=== PATIENT | male | born 1945 | race Caucasian/White ===

== ENCOUNTER 2017-01-31 06:10 | Day surgery (SDC) | payer MEDICARE, OTHER ==
--- NOTE | ~2017-01-31 | OP ---
Record Of Operation [facility] [address] [place]. [address] NAME: ABI TELLEZ : 41 STATUS : [facility]#: [id number] AGE: 71 ADM/REG DATE : 01/31/17 MR#: [id number] REPORT SERV DATE: 02/01/17 DICTATED BY: ISAIAH BASURTO DATE: 02/01/17 REPORT STATUS : Draft TRANSCRIBED BY: MODErma DATE: 02/01/17 DATE OF PROCEDURE: 01/31/2017 PREOPERATIVE DIAGNOSIS: End-stage renal disease. POSTOPERATIVE DIAGNOSIS: End-stage renal disease. PROCEDURE: Left brachial artery axillary vein AV graft. SURGEON: Isaiah Basurto M.D. ACTION FINISHER: Johnny Ramírez. ANESTHESIA: Block and local. INDICATIONS: The patient is a 71-year-old gentleman with renal failure who had a left radiocephalic fistula placed. The fistula never matured, so now he returns to the operating room for a new access. DESCRIPTION OF PROCEDURE: After informed consent was obtained, the patient was taken to the operating room and placed in the supine position on the operating table. Monitored anesthesia was administered. A block was previously administered. I began with an ultrasound examination of the left upper extremity and found that the basilic vein was of reasonable size. This was in the arm. The cephalic vein looked reasonable in the distal arm, but was essentially non-existent proximally. Given this gentleman's prolonged use of a dialysis catheter, it was decided to perform an AV graft. The patient's left upper extremity was prepped and draped in the usual sterile fashion. A longitudinal skin incisions were made along the proximal and distal left arm. Cautery was used to deepen the incisions. I sharply dissected out the left brachial artery and the left axillary vein. The brachial artery measured about 5 mm in diameter and was extremely diseased. The axillary vein was about 4 mm in diameter. I selected and tunneled a 4 to 7 mm tapered PTFE graft in a subcutaneous position. I systemically heparinized. I controlled the axillary vein. I created a longitudinal venotomy. I spatulated the 7 mm end of the graft. I sewed the end of the graft onto the side of the vein. I flushed it of air and debris before tying down the sutures. I achieved hemostasis. I then controlled the brachial artery. I created a longitudinal arteriotomy. I spatulated the 4 mm end of the graft and sewed the end of the graft on the side of the brachial artery. I flushed of air and debris before tying down the sutures. I released flow to the wrist. I achieved hemostasis. I washed out the wounds and closed them in layers. There was a great thrill within the graft upon completion and there was no evidence of hand ischemia. The patient tolerated the procedure well without any intraprocedural complications noted. BERNARDO/ALLA Record Of Operation [address] [place]. [address] NAME: ABI TELLEZ : 41 STATUS : [facility] PAT#: [id number] AGE: 71 ADM/REG DATE : 01/31/17 MR#: [id number] REPORT SERV DATE: 02/01/17 DICTATED BY: ISAIAH BASURTO DATE: 02/01/17 REPORT STATUS : Draft TRANSCRIBED BY: ALLA DATE: 02/01/17 Isaiah Basurto M.D. / [id number] CC: Joan Velazquez M.D.
[~2017-01-31 06:10] MED LIST: ALTA2.5 PO; AMARYL2 PO; AMARYL4 PO; ASAB PO; BACDS PO; BUM1 PO; C1 PO; C2 OR; C2 PO; C25; C5 PO; CLARIT10 PO; CO Q-10200 MG PO; COMBIVENT RESPIM4 GM INH; COQ-1010 MG OR; COQ-10200 MG PO; CORDARONE PO; COREG12 PO; COUMADIN3 MG PO; COUMADIN6 MG; DEMA20 PO; FESO4 PO; FORTAMET500 MG PO; HALF81 PO; K500 PO; L20 PO; LEVAQUIN750 MG PO; LEVEMFLXPN SC; LEVEMIR; LEVOTHYROXIN25 MCG PO; LEVOTHYROXIN75 MCG PO; LIPITOR40 PO; LIPITOR80 MG PO; MEDROL DOSE PACK; MELA3 PO; NITROSTAT0.4 MG SL; P20 PO; PACERONE100 MG PO; PLAVIX PO; PROMETHAZIN1 PO; REPATHA 140 MG IJ; REPATHA 140 MG IN; REPATHA IJ; REPATHA SC; SPIRO25 PO; SYMBICORT 160/41 INH INH; SYN075 PO; TYLENOL SIN1 PO; UNKNOWN ANTIBIOTIC IV; VITAMIN D1000 UNI1 PO; VITAMIN D31000 UNIT PO; XODOL1 TA2 PO; Z100 PO; ZESTRIL30 MG PO; [UNRECOGNIZED DRUG - OTHER] PO
[2017-01-31 07:11] LABS: HEMATOCRIT 34.6 % (40.0-51.0); HEMOGLOBIN 10.6 g/dL (13.6-17.8)
[2017-01-31 07:18] LABS: INTERNATIONAL NORMAL RATI 1.3 UNITS (-); PROTIME (NOT ORD) 15.7 SEC (12.0-14.5)
[2017-01-31 07:27] LABS: CHLORIDE, SERUM 104 MMOL/L (96-112); CO2 (CARBON DIOXIDE) 26 MMOL/L (24-34); POTASSIUM, SERUM 4.6 MMOL/L (3.5-5.3); SODIUM, SERUM 138 MMOL/L (135-148)
[2017-01-31 07:28] LABS: BUN (BLOOD UREA NITROGEN) 45 MG/DL (6-23); CALCIUM, SERUM 8.8 MG/DL (8.5-10.4); GFR AFRICAN AMERICAN 13 ML/MIN (>=60); GFR NON AFRICAN AMERICAN 11 ML/MIN (>=60); GLUCOSE, SERUM 106 MG/DL (60-99)
[2017-05-08] MEDS ORDERED: COREG12 PO (16:04)
[2017-05-08] MEDS ORDERED: HALF81 PO (16:04)
[2017-05-08] MEDS ORDERED: AMARYL1 MG PO (16:05)
[2017-05-08] MEDS ORDERED: NEUR400 PO ×2 (16:05→16:09)
[2017-05-08] MEDS ORDERED: VITAMIN D31000 UNIT PO (16:05)
[2017-05-08] MEDS ORDERED: VISINE TEARS15 ML OPH (16:06)
[2017-05-08] MEDS ORDERED: NORCO1 TAB PO (16:08)
[2017-05-08] MEDS ORDERED: SYN075 PO (16:12)
[2017-05-08] MEDS ORDERED: RENVELA800 MG PO (16:13)
[2017-05-08] MEDS ORDERED: SPIRIVA RESPIMAT INH (16:15)
[2017-05-08] MEDS ORDERED: REPATHA INJECTION SC (16:18)
[2017-05-08] MEDS ORDERED: C2 PO (16:20)
== END 2017-01-31 13:08 | disposition home or self-care (01) ==
LOC: SDC 06:10
PROVIDERS: Surgery
DX: I12.0 Hypertensive chronic kidney disease with stage 5 chronic kidney disease or end stage renal disease (principal); E11.22 Type 2 diabetes mellitus with diabetic chronic kidney disease; N18.6 End stage renal disease; J44.9 Chronic obstructive pulmonary disease, unspecified; I25.10 Atherosclerotic heart disease of native coronary artery without angina pectoris; Z88.8 Allergy status to other drugs, medicaments and biological substances; Z79.82 Long term (current) use of aspirin; Z79.01 Long term (current) use of anticoagulants; Z79.899 Other long term (current) drug therapy
CPT/HCPCS: 36830; 80048; 82962; 85014; 85018; 85610; 93005; C1768; J0690; J2250; J2795; J3010

== ENCOUNTER 2017-02-20 16:19 | Observation (INO) | payer MEDICARE, OTHER ==
[2017-02-20] MEDS ORDERED: NORCO1 TAB PO (18:10)
[2017-02-20] MEDS ORDERED: COREG12 PO (18:10)
[2017-02-20] MEDS ORDERED: REPATHA PO (18:10)
[2017-02-20] MEDS ORDERED: RENVELA800 MG PO (18:11)
[2017-02-20] MEDS ORDERED: LEVOTHYROXIN75 MCG PO (18:12)
[2017-02-20] MEDS ORDERED: AMARYL1 MG PO (18:12)
[2017-02-20] MEDS ORDERED: C1 PO (18:13)
[2017-02-20] MEDS ORDERED: VITAMIN D1000 UNI1 PO (18:14)
[2017-02-20] MEDS ORDERED: SYMBICORT 160/41 INH INH (18:14)
[2017-02-20] MEDS ORDERED: VISINE TEARS15 ML OPH (18:15)
[2017-02-20 18:16] LABS: BASOPHILS 0.4 %; BASOPHILS ABSOLUTE 0.04 10/3/uL (0.0-0.16); EOSINOPHILS ABSOLUTE 0.36 10/3/uL (0.0-0.53); ER CBC TAT 0 Hrs 18 Mins; HEMOGLOBIN 10.6 g/dL (13.6-17.8); IMMATURE GRANULOCYTES 0.8 %; IMMATURE GRANULOCYTES ABSOLUTE 0.07 10/3/uL (0.0-0.11); LYMPHOCYTES 20.8 %; LYMPHOCYTES ABSOLUTE 1.85 10/3/uL (0.67-4.30); MANUAL DIFF NO %; MEAN CORPUS HGB CONC 28.6 g/dL (32.0-36.0); MEAN CORPUSCULAR HEMOGLOB 29.9 pg (26.0-34.0); MEAN CORPUSCULAR VOLUME 104.5 fL (80-100); MEAN PLATELET VOLUME 9.7 fL (9.2-13.0); MONOCYTES 14.1 %; MONOCYTES ABSOLUTE 1.26 10/3/uL (0.21-1.20); NEUTROPHILS 59.9 %; NEUTROPHILS ABSOLUTE 5.33 10/3/uL (2.02-8.40); PLATELET COUNT 204 10/3/uL (150-400); RBC DISTRIBUTION WIDTH 19.3 % (12.0-16.0); RED CELL COUNT 3.54 10/6/uL (4.7-6.1); WHITE BLOOD CELLS 8.9 10/3/uL (4.5-10.5)
[2017-02-20 18:24] LABS: CHEST PAIN PROFILE TAT 0 Hrs 26 Mins; CHLORIDE, SERUM 108 MMOL/L (96-112); CO2 (CARBON DIOXIDE) 29 MMOL/L (24-34); SODIUM, SERUM 137 MMOL/L (135-148); TROPONIN I <0.02 NG/ML (<0.05)
[2017-02-20 18:26] LABS: INTERNATIONAL NORMAL RATI 1.5 UNITS (-)
[2017-02-20 18:27] LABS: BUN (BLOOD UREA NITROGEN) 36 MG/DL (6-23); CREATININE 6.06 MG/DL (0.70-1.30); GFR AFRICAN AMERICAN 10 ML/MIN (>=60); GFR NON AFRICAN AMERICAN 8 ML/MIN (>=60); GLUCOSE, SERUM 68 MG/DL (60-99); PARTIAL THROMBO TIME 32.4 SEC (22.5-37.2); POTASSIUM, SERUM 7.2 MMOL/L (3.5-5.3)
[2017-02-20 18:29] LABS: PROTIME (NOT ORD) 18.1 SEC (12.0-14.5)
[2017-05-08] MEDS ORDERED: HALF81 PO (16:04)
[2017-05-08] MEDS ORDERED: COREG12 PO (16:04)
[2017-05-08] MEDS ORDERED: NEUR400 PO ×2 (16:05→16:09)
[2017-05-08] MEDS ORDERED: AMARYL1 MG PO (16:05)
[2017-05-08] MEDS ORDERED: VITAMIN D31000 UNIT PO (16:05)
[2017-05-08] MEDS ORDERED: VISINE TEARS15 ML OPH (16:06)
[2017-05-08] MEDS ORDERED: NORCO1 TAB PO (16:08)
[2017-05-08] MEDS ORDERED: SYN075 PO (16:12)
[2017-05-08] MEDS ORDERED: RENVELA800 MG PO (16:13)
[2017-05-08] MEDS ORDERED: SPIRIVA RESPIMAT INH (16:15)
[2017-05-08] MEDS ORDERED: REPATHA INJECTION SC (16:18)
[2017-05-08] MEDS ORDERED: C2 PO (16:20)
== END 2017-02-20 21:39 | disposition home or self-care (01) ==
LOC: ER 16:19 → CDU1 18:09 → CDU2 20:49
PROVIDERS: Hospitalist
DX: M79.89 Other specified soft tissue disorders (principal); E87.6 Hypokalemia; N18.6 End stage renal disease; Z79.01 Long term (current) use of anticoagulants; Z79.899 Other long term (current) drug therapy; Z88.8 Allergy status to other drugs, medicaments and biological substances
CPT/HCPCS: 71020; 80048; 83735; 83880; 84132; 84484; 85025; 85610; 85730; 93005; 99285; G0257; G0378

== ENCOUNTER 2017-04-04 19:26 | Inpatient (IN) | payer MEDICARE, OTHER ==
--- NOTE | ~2017-04-04 | CN ---
Consultation Report [facility] [address] [place]. [address] NAME: ABI TELLEZ : 41 STATUS : ADM IN PAT#: [id number] AGE: 72 ADM/REG DATE : 04/04/17 MR#: [id number] REPORT SERV DATE: 04/05/17 DICTATED BY: ROSA MARIA NICOLE DATE: 04/05/17 REPORT STATUS : Draft TRANSCRIBED BY: MODL DATE: 04/05/17 PULMONARY CONSULTATION DATE OF CONSULTATION: 04/05/2017 REASON FOR CONSULTATION: Hypoxia and hypercapnia in a patient with COPD. HISTORY OF PRESENT ILLNESS: Mr. Tellez is a 72-year-old white male, former smoker, with COPD and chronic hypoxia-on supplemental oxygen at a flow rate of 3 L/minute as an outpatient, who was admitted after a fall. Pulmonary was consulted secondary to his history of COPD, hypoxia beyond his baseline, and hypercapnia on admission. The patient states he was at his baseline from a pulmonary perspective until he fell earlier today. He states that he fell, but is unsure why though. His admission history and physical states he tripped over his nasal cannula. He states that his oxygen fell away from him and he was unable to retrieve it, so he was without supplemental oxygen during the entire time he was on the floor. He states he was unable to get up for more than 90 minutes until help arrived. He denies loss of consciousness, but was found to be confused. He was brought to the emergency room and remained confused upon arrival. His ABG at that time revealed a pCO2 of 59 with a pO2 of 47 while on supplemental oxygen at a flow rate of 3 L/minute. He denies antecedent pulmonary complaints, including shortness of breath beyond his baseline. He also denies cough, wheezing, sputum production, fever, chills, night sweats, dizziness, or headache. He has been treated with systemic steroids as well as Spiriva and albuterol along with additional supplemental oxygen. He states he feels significantly better since admission. Additionally, he has had hemodialysis. He did note that he had increased lower extremity edema over the past several days. With regard to his COPD, he has a history of poor compliance with his medications, but states he has been taking his Spiriva 18 mcg once daily and Symbicort 160/4.5 mcg two puffs twice daily as prescribed over the past several weeks. He also states that he uses supplemental oxygen at a flow rate of 3 L/minute "most of the time" as prescribed. PAST MEDICAL HISTORY: 1. COPD as noted above. 2. Chronic hypoxia-on supplemental oxygen at a flow rate of 3-4 L/minute 24 hours per day. 3. Former smoker. 4. Coronary artery disease with cardiac stents. 5. Peripheral artery disease with lower extremity stents. 6. Pacemaker secondary to arrhythmia. 7. Chronic kidney disease, on hemodialysis Uiewsu-Nnoflyjdx-Evyahj. 8. Previous pneumonia. 9. Hypertension. 10.Hyperlipidemia. 11.Diabetes mellitus. 12.AV fistula. 13.Previous left foot surgery. Consultation Report [address] [place]. [address] NAME: ABI TELLEZ : 41 STATUS : ADM IN [facility]#: [id number] AGE: 72 ADM/REG DATE : 04/04/17 MR#: [id number] REPORT SERV DATE: 04/05/17 DICTATED BY: ROSA MARIA NICOLE DATE: 04/05/17 REPORT STATUS : Draft TRANSCRIBED BY: ALLA DATE: 04/05/17 14.Hypothyroidism. 15.On amiodarone therapy. 16.On chronic anticoagulation. FAMILY HISTORY: He denies a family history of lung disease. SOCIAL HISTORY: He smoked up to two packs of cigarettes per day for 55 years and quit approximately four years ago. He denies ethanol intake, past/present drug use, chewing tobacco, or occupational exposures. 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 He is and has two children. MEDICATIONS: Outpatient and inpatient medications were reviewed and are as documented in the record. His pulmonary medications include rescue albuterol as well as Spiriva 18 mcg once daily and Symbicort 160/4.5 mcg two puffs twice daily. ALLERGIES: IBUPROFEN. REVIEW OF SYSTEMS: A 10-point system review was conducted and is remarkable for the symptoms as described in the history of present illness. He denies symptoms of obstructive sleep apnea. He denies GERD symptoms or nasal symptoms. PHYSICAL EXAMINATION: VITAL SIGNS: Temperature 97.5 degrees, heart rate 74, blood pressure 117/55, respiratory rate 19, oxygen saturation 90% on supplemental oxygen at a flow rate of 4 L/minute via nasal cannula. GENERAL: Pale, white male. Alert, oriented, in no apparent distress. He appears comfortable and is speaking in full sentences. HEENT: Normocephalic. Atraumatic. There is no scleral icterus. The conjunctivae are clear. The oropharynx is clear. NECK: Supple. No JVD or lymphadenopathy was noted. LUNGS: There are right basilar crackles. The lungs are otherwise clear to auscultation bilaterally. There are diminished breath sounds throughout. HEART: Regular rate and rhythm with no ectopy noted. ABDOMEN: Soft. Nontender. Nondistended. There are normal bowel sounds in all four quadrants. BILATERAL EXTREMITIES: There is trace pretibial edema, but no cyanosis or clubbing. NEUROLOGICAL: A limited exam was found to be nonfocal. SKIN: No rashes were noted. LABORATORY RESULTS: Labs were reviewed and are as documented in the record. Notable labs include a white blood cell count of 5.0, potassium 6.6 on admission. Arterial blood gas on admission revealed a pH of 7.26, pCO2 of 59, and pO2 of 47 on supplemental oxygen at 36%. Consultation Report [address] [address] NAME: ABI TELLEZ : 41 STATUS : ADM IN [facility]#: [id number] AGE: 72 ADM/REG DATE : 04/04/17 MR#: [id number] REPORT SERV DATE: 04/05/17 DICTATED BY: ROSA MARIA NICOLE DATE: 04/05/17 REPORT STATUS : Draft TRANSCRIBED BY: ALLA DATE: 04/05/17 Subsequent arterial blood gas revealed a pH of 7.21, pCO2 of 24, and a pO2 of 58 on supplemental oxygen at 36%. A third blood gas revealed a pH of 7.29, pCO2 of 65, and pO2 of 57 on supplemental oxygen at 36%. The chest x-ray done in this admission revealed mild pulmonary edema, but no infiltrates or effusions. ASSESSMENT AND PLAN: Mr. Tellez is a 72-year-old white male, former smoker, with chronic obstructive pulmonary disease and chronic hypoxia, who was admitted with hypoxia and hypercapnia out of proportion to his baseline after a fall where he was unable to use his supplemental oxygen. His hypoxia is likely related to him being off supplemental oxygen for an extended period of time as well as his mild volume overload as noted. He has received hemodialysis since admission and feels some better. Currently, there is no evidence of bronchospasm or COPD exacerbation, but he did receive systemic steroids and bronchodilators as noted. His pCO2 has improved, but remains above his baseline. Recommend continue the patient on Spiriva. We will add more acting beta agonist/inhaled corticosteroid to his inpatient regimen-Dulera is a formulary equivalent to the patient's home medication of Symbicort, so this will be added. Solu-Medrol could be discontinued and he will be started on prednisone 40 mg once daily. This will be continued for the moment. If he continues to improve and has no evidence of bronchospasms, then this could be discontinued, otherwise would treat with prednisone for five days. Currently, there is no role for antibiotics from a Pulmonary standpoint as he has no evidence of pulmonary infection. Recommend improving pulmonary toilet, so EzPAP will be added to his regimen. He is close to his baseline with regard to his supplemental oxygen. This can be titrated as needed. As noted, he had minimal pulmonary edema on chest x-ray. His volume status is being managed by Nephrology. Recommend rechecking his chest x-ray in the morning. Thank you very much for this consultation. Further recommendations to follow dependent on the patient's response to therapy and additional lab work. Consultation Report [address] [place]. [address] NAME: ABI TELLEZ : 41 STATUS : ADM IN [facility]#: [id number] AGE: 72 ADM/REG DATE : 04/04/17 MR#: [id number] REPORT SERV DATE: 04/05/17 DICTATED BY: ROSA MARIA NICOLE DATE: 04/05/17 REPORT STATUS : Draft TRANSCRIBED BY: ALLA DATE: 04/05/17 PS/ALLA Rosa Maria Nicole M.D. / [id number] CC: Joan Fernando M.D.
--- NOTE | ~2017-04-04 | OP ---
Record Of Operation [facility] [address] [place]. [address] NAME: ABI TELLEZ : 41 STATUS : ADM IN PAT#: [id number] AGE: 72 ADM/REG DATE : 04/04/17 MR#: [id number] REPORT SERV DATE: 04/07/17 DICTATED BY: ISAIAH BASURTO DATE: 04/06/17 REPORT STATUS : Draft TRANSCRIBED BY: ALLA DATE: 04/06/17 DATE OF PROCEDURE: 04/06/2017 PREOPERATIVE DIAGNOSES: 1. Left upper extremity edema. 2. Central venous stenosis. 3. Non-maturing left upper extremity AV graft. POSTOPERATIVE DIAGNOSES: 1. Left upper extremity edema. 2. Central venous stenosis. 3. Non-maturing left upper extremity AV graft. PROCEDURE: 1. Left upper extremity fistulogram. 2. Percutaneous angioplasty of the left axillary vein, subclavian vein, innominate vein, and SVC. SURGEON: Isaiah Basurto M.D. MANAGER STRATEGIC PARTNERSHIPS: None. ANESTHESIA: MAC and local. INDICATIONS: The patient is a 72-year-old gentleman, who has a left brachial artery to axillary vein arteriovenous graft placed. He has left upper extremity edema, and an ultrasound demonstrated stenoses in the central veins. As the graft is not maturing, he was consented for intervention. DESCRIPTION OF PROCEDURE: After informed consent was obtained, the patient was taken to the operating room and placed in the supine position on the operating table. Monitored anesthesia was administered. The patient's left upper extremity was prepped and draped in usual sterile fashion. Ultrasound-guided access was obtained of the left upper extremity AV graft in an antegrade fashion. The ultrasound image was documented on the chart. I placed a micropuncture sheath and obtained a fistulogram that demonstrated a stenosis at the left axillary vein. There was also a left subclavian vein stenosis. The left innominate vein was occluded. More central flow was not visualized. I systemically heparinized and placed a 7-Urdu sheath. I crossed the innominate vein occlusion and obtained an angiogram that demonstrated perhaps an SVC stenosis. I angioplastied the left subclavian and innominate veins with a 6 mm balloon, as I had a lot of difficulty getting a wire and catheter past this lesion. I did not think a larger balloon would pass through. I then angioplastied the left axillary vein, subclavian vein, and innominate vein with a 10 mm balloon. While there was improvement, there was still a residual stenosis in the left subclavian vein as well as the left innominate vein. These were angioplastied with a 12 mm high-pressured balloon. Imaging obtained afterwards showed a great result. There was no significant residual stenosis noted. Thus, I withdrew my wire, catheter, and sheath and placed a stitch for Record Of Operation [address] [place]. [address] NAME: ABI TELLEZ : 41 STATUS : ADM IN PAT#: [id number] AGE: 72 ADM/REG DATE : 04/04/17 MR#: [id number] REPORT SERV DATE: 04/07/17 DICTATED BY: ISAIAH BASURTO DATE: 04/06/17 REPORT STATUS : Draft TRANSCRIBED BY: ALLA DATE: 04/06/17 hemostasis. The patient tolerated the procedure well without any intraprocedural complications noted. FUR LINER/ALEXISL Isaiah Basurto M.D. / [id number] CC: Joan Fernando M.D.
--- NOTE | ~2017-04-04 | DS ---
Discharge Summary [facility] [address] [place]. [address] NAME: ABI TELLEZ : 41 STATUS : DIS IN PAT#: [id number] AGE: 72 ADM/REG DATE : 04/04/17 MR#: [id number] REPORT SERV DATE: 04/19/17 DICTATED BY: HUGH MURILLO DATE: 04/18/17 REPORT STATUS : Draft TRANSCRIBED BY: ALLA DATE: 04/18/17 Data Collection from hospitalization DISCHARGE DIAGNOSIS(ES): 1. Acute on chronic hypoxic respiratory failure. 2. End-stage renal disease. 3. Fall. 4. Hyperkalemia. 5. Chronic obstructive pulmonary disease. 6. Malfunctioning AV fistula, status post fistulogram. 7. Diabetes mellitus. 8. Hypothyroid. 9. Atrial fibrillation. 10.Ischemic cardiomyopathy. 11.Coronary artery disease. 12.Hyperlipidemia. 13.Peripheral arterial disease. 14.Former smoker. CONSULTATIONS: Rosa Maria Rivera M.D. and Isaiah Basurto M.D. PROCEDURES PERFORMED: Left upper extremity fistulogram; percutaneous angioplasty of left axillary vein, subclavian vein, innominate vein, and SVC, 04/06/2017. CT scan of the brain without contrast, 04/04/2017. MEDICATIONS: Aspirin 81 mg every morning; Coreg 12.5 mg twice a day; vitamin D3 1000 units daily; Neurontin 400 mg at bedtime; Amaryl 1 mg daily; Visine one drop three times a day as needed; [place] 10/325 one tablet four times a day as needed; Synthroid 37.5 mcg on Saturdays and Sundays as instructed; levothyroxine 75 mcg on Monday, Monday, Monday, , Monday; Deltasone as instructed; Renvela 2400 mg with meals; Spiriva two puffs via inhaler daily; Repatha injection 140 mg every 14 days as instructed; Coumadin 1.5 mg on Monday, Monday, , and Monday; Coumadin 2 mg on Monday, Monday, and Monday. CONDITION AT DISCHARGE: Stable. DISPOSITION: The patient was discharged home on a renal-diabetic diet with activities as instructed. He would follow up for dialysis as scheduled. HOSPITAL COURSE: This is a 72-year-old man who dialyzes on Mondays, Wednesdays, and Fridays through an IJ PermCath. He has a left upper arm AV fistula which was not being used on dialysis. He was most recently in the hospital in 10/2016 with a urinary tract infection and COPD exacerbation. Apparently, on the day of this admission, he tripped at home over his oxygen while he was letting his dogs outside. He laid on the floor for approximately 90 minutes until help arrived. During that time, he developed hypoxia and confusion. He was brought to the emergency room and chest x-ray showed no active disease process. A CT scan of the brain without contrast showed no acute changes. He was placed on 36% FiO2, potassium was 6.6. White count was 9.1. He was afebrile. O2 saturation was 90% on 4 L per nasal cannula. He was admitted to the hospital for further evaluation and treatment. Discharge Summary [address] [address] NAME: ABI TELLEZ : 41 STATUS : DIS IN PAT#: [id number] AGE: 72 ADM/REG DATE : 04/04/17 MR#: [id number] REPORT SERV DATE: 04/19/17 DICTATED BY: HUGH MURILLO DATE: 04/18/17 REPORT STATUS : Draft TRANSCRIBED BY: ALLA DATE: 04/18/17 Upon admission, the patient was felt to have chronic obstructive pulmonary disease exacerbation, and with his lack of access to oxygen per nasal cannula, he developed some hypoxic respiratory insufficiency. He was placed in the IMCU. IV steroids were started. Nebulizers and oxygen were continued. We would medically manage his potassium. He does have a pacemaker which should protect his rhythm from hyperkalemia to some degree. We would hold off on antibiotics at this time. Supportive care continued. We protected his left arm. In the following day, he was seen by Dr. Rosa Maria Rivera regarding hypoxia and hypercapnia in a patient with COPD. The patient is a former smoker. He had been treated with systemic steroids as well as Spiriva and albuterol along with additional supplemental oxygen. He said he felt significantly better since admission. He also underwent hemodialysis. He had noticed that he had developed increased lower extremity edema over the past several days. Chest x-ray had revealed mild pulmonary edema but no infiltrates or effusions. Currently, there was no evidence of bronchospasm or COPD exacerbation, but he did receive systemic steroids and bronchodilators as noted. PCO2 had improved, but he does remain above his baseline. Spiriva was continued. Dulera was added. Solu-Medrol was going to be discontinued, and he was started on prednisone. Creatinine level was 7.26. The patient has ischemic cardiomyopathy with an ejection fraction of 30% to 35%. On the , he had no shortness of breath. His blood sugars had increased with steroids. Potassium was stable. It was felt that he would need to undergo a fistulogram. The patient refused to have ABG drawn that morning. He felt like his breathing was at baseline. Chest x-ray showed increased pulmonary edema. Dulera and Spiriva were continued as well as Proventil. Prednisone was continued. He remained on supplemental O2. He was seen by Dr. Isaiah Basurto. The patient has a left brachial artery to axillary vein arteriovenous graft. He had developed left upper extremity edema. Ultrasound demonstrated stenoses in the central veins. As the graft was not maturing, he consented for surgical intervention. He was taken to the operating room by Dr. Basurto where he underwent the above-mentioned procedure. He tolerated this well, and there were no complications. Discharge planning was performed. On 04/07/2017, he felt well and wanted to go home. He had no edema. Discharge instructions were given. Hemodialysis therapy was performed. Due to his improved and stable condition, he was discharged home with the above-stated instructions. Information collected by: Sherri Francisco I submit the above information as my discharge summary. TG/MODL Hugh Murillo M.D. / [id number] CC: Joan Fernando M.D. Sachin V Phade, M.D.
--- NOTE | ~2017-04-04 | HP ---
History And Physical [facility] [address] [place]. [address] NAME: ABI TELLEZ : 41 STATUS : ADM IN PAT#: [id number] AGE: 72 ADM/REG DATE : 04/04/17 MR#: [id number] REPORT SERV DATE: 04/05/17 DICTATED BY: CLARENCE HAMMONDS DATE: 04/04/17 REPORT STATUS : Draft TRANSCRIBED BY: MODL DATE: 04/04/17 DATE OF ADMISSION: 04/04/2017 CHIEF COMPLAINT: Altered mentation and hypoxia. HISTORY OF PRESENT ILLNESS: Mr. Tellez is a pleasant 72-year-old white male, who dialyzes at the [facility] on Monday, Monday, and Monday through an IJ PermCath. He has a left upper arm AV fistula which is not being used on dialysis. He was most recently in the hospital in October 2016 with a urinary tract infection and COPD exacerbation. Apparently, today, he tripped at home over his oxygen when he was letting his dogs outside. He laid in the floor for approximately 90 minutes until help arrived. During that time, he developed hypoxia and confusion. He was brought to the emergency room where a chest x-ray showed no active disease process and a CT of the head showed no acute changes. He was placed on 36% FiO2 where an ABG showed pH of 7.26, PaCO2 of 59, PaO2 of 47. Potassium was 6.6 and white count 9.1. He is afebrile at 98.9. No family is available in the room at the time of my interview, but he is now awake, alert, and appropriate. His O2 saturation is 90% on 4 L per nasal cannula. PAST MEDICAL HISTORY: 1. End-stage renal disease, Monday, Monday, and Monday at [facility]. IJ PermCath and left upper arm fistula. 2. Oxygen-dependent COPD. 3 L continuous. 3. Atrial fibrillation, on chronic anticoagulation with previous DC cardioversion and AICD. 4. Coronary artery disease with PCI. EF 30% to 35% by chart. 5. Peripheral arterial disease with history of lower extremity stents. 6. Hyperlipidemia. 7. Hypothyroidism. HOME MEDICATIONS: Not available at the time of this dictation in the emergency room. FAMILY HISTORY: Noncontributory to current admission. SOCIAL HISTORY: He is . Former remote smoker. Quit smoking three years ago. He lives in [place], [place]. REVIEW OF SYSTEMS: Significant for events as per HPI. Denies recent productive cough, fever, or chills. PHYSICAL EXAMINATION: VITAL SIGNS: Temperature 98.9, pulse 77, respirations 25, blood pressure 104/50, 90% sat on 4 L per nasal cannula. GENERAL: He is a chronically ill-appearing, elderly, white male, who is awake, alert, and oriented and cooperative with the exam. Reasonably good historian. HEENT: Sclerae without icterus. Conjunctivae not injected. Oropharynx is clear. Mucous membranes are dry. History And Physical [address] [address] NAME: ABI TELLEZ : 41 STATUS : ADM IN [facility]#: [id number] AGE: 72 ADM/REG DATE : 04/04/17 MR#: [id number] REPORT SERV DATE: 04/05/17 DICTATED BY: CLARENCE HAMMONDS DATE: 04/04/17 REPORT STATUS : Draft TRANSCRIBED BY: ALLA DATE: 04/04/17 LUNGS: He has bilateral diffuse rhonchi with expiratory wheezes. Mild dyspnea and tachypnea are noted with conversation despite oxygen per nasal cannula. HEART: Rhythm is paced. Rate regular 2/6 murmur. No rub. ABDOMEN: Soft and nontender. Nondistended. Bowel sounds present throughout without rebound, guarding, or peritoneal signs. EXTREMITIES: Show no edema. SKIN: Shows no rash. Right IJ PermCath bandages are clean, dry, and intact without evidence of external infection. Left upper arm AV fistula palpable thrill, audible bruit. NEURO: Grossly nonfocal. Mood and affect are appropriate. MUSCULOSKELETAL: Shows no active tenosynovitis or gout. LABORATORY DATA: Sodium 134, potassium 6.6, bicarb 29, creatinine 6.7, calcium 8.6. White count 9.1 thousand, hemoglobin 12.2, platelets 143,000. ASSESSMENT AND PLAN: Mr. Tellez has end-stage renal disease and oxygen-dependent chronic obstructive pulmonary disease, presents with hypoxia, hypercapnia, altered mentation, coronary disease with ejection fraction 30% to 35%, pacemaker, and hypothyroidism. Almost certainly, he had chronic obstructive pulmonary disease exacerbation and with his lack of access to oxygen per nasal cannula developed some hypoxic respiratory insufficiency. He seems clinically improved from an initial phone call from the emergency room. We will admit him to the IM under the Renal Service and ask Pulmonary to evaluate. IV steroids. Continue nebulizers and oxygen. We will medically manage his potassium tonight with treatment in the ER. He does have a pacemaker which should protect his rhythm from hyperkalemia to some degree. We will plan on his usual first shift dialysis tomorrow morning and keep a close watch on his labs overnight. Hold off on antibiotics at this time without fever or white count elevation. Continue supportive care. Watch labs. Protect left arm. Group will follow during this admission. NC/MODL Clarence Hammonds M.D. / [id number] CC: Joan Fernando M.D.
[2017-04-04 18:53] LABS: BASOPHILS 0.2 %; BASOPHILS ABSOLUTE 0.02 10/3/uL (0.0-0.16); EOSINOPHILS 1.1 %; ER CBC TAT 0 Hrs 08 Mins; HEMOGLOBIN 12.2 g/dL (13.6-17.8); IMMATURE GRANULOCYTES 0.9 %; IMMATURE GRANULOCYTES ABSOLUTE 0.08 10/3/uL (0.0-0.11); LYMPHOCYTES 18.3 %; LYMPHOCYTES ABSOLUTE 1.67 10/3/uL (0.67-4.30); MEAN CORPUS HGB CONC 29.3 g/dL (32.0-36.0); MEAN CORPUSCULAR HEMOGLOB 30.4 pg (26.0-34.0); MEAN PLATELET VOLUME 10.4 fL (9.2-13.0); MONOCYTES 23.4 %; MONOCYTES ABSOLUTE 2.13 10/3/uL (0.21-1.20); NEUTROPHILS 56.1 %; NEUTROPHILS ABSOLUTE 5.11 10/3/uL (2.02-8.40); PLATELET COUNT 143 10/3/uL (150-400); RBC DISTRIBUTION WIDTH 19.1 % (12.0-16.0); RED CELL COUNT 4.01 10/6/uL (4.7-6.1); WHITE BLOOD CELLS 9.1 10/3/uL (4.5-10.5)
[2017-04-04 18:54] LABS: HEMATOCRIT 41.7 % (40.0-51.0); MANUAL DIFF NO %
[2017-04-04 19:02] LABS: CALCIUM, SERUM 8.6 MG/DL (8.5-10.4); CHLORIDE, SERUM 103 MMOL/L (96-112); CO2 (CARBON DIOXIDE) 29 MMOL/L (24-34); GFR AFRICAN AMERICAN 9 ML/MIN (>=60); GFR NON AFRICAN AMERICAN 7 ML/MIN (>=60); GLUCOSE, SERUM 72 MG/DL (60-99); SODIUM, SERUM 134 MMOL/L (135-148)
[2017-04-04 19:12] LABS: BUN (BLOOD UREA NITROGEN) 31 MG/DL (6-23); CREATININE 6.66 MG/DL (0.70-1.30); POTASSIUM, SERUM 6.6 MMOL/L (3.5-5.3)
[2017-04-04 19:12] LABS: BE (BASE EXCESS) -2.4 MEQ/L (0 +/- 2.5); CARBOXYHEMOGLOBIN 2.6 % (0-3); DEVICE NC; HCO3 (ACTUAL BICARBONATE) 25.6 MEQ/L (23-27); HEMOBLOGIN CONTENT 12.9 G/DL (14-18); INSTRUMENT SERIAL # 8087; METHEMOGLOBIN 0.2 % (0-3); OPERATOR ID 33214; PCO2 (CO2 TENSION) 59 MMHG (35-45); PO2 (O2 TENSION) 47 MMHG (79-93); SAMPLE Arterial; pH 7.26 (7.37-7.43)
[2017-04-04 19:13] LABS: ALLENS TEST Pos
[2017-04-04 19:16] LABS: BASOPHILS 1 %; BASOPHILS ABSOLUTE (CALC) 0.09 10/3/uL (0.0-0.16); EOSINOPHILS 2 %; EOSINOPHILS ABSOLUTE (CALC) 0.18 10/3/uL (0.0-0.53); ER DIFF TAT 0 Hrs 31 Mins; LYMPHOCYTES 18 %; LYMPHOCYTES ABSOLUTE (CALC) 1.64 10/3/uL (0.67-4.30); MONOCYTES 15 %; MONOCYTES ABSOLUTE (CALC) 1.37 10/3/uL (0.21-1.20); NEUTROPHILS ABSOLUTE (CALC) 5.82 10/3/uL (2.02-8.40); SEGMENTED NEUTROPHIL (0) 64 %; TOTAL NUCLEATED CELLS 100
[2017-04-04 19:17] LABS: ANISOCYTOSIS 1+ (5-10/OIF) (0-5/OIF); MACROCYTES 1+ (5-10/OIF) (0-5/OIF); PLATELET ESTIMATE SLT DEC (ADEQUATE)
[~2017-04-04 19:26] MED LIST changes: +AMARYL1 MG PO; +NORCO1 TAB PO; +RENVELA800 MG PO; +REPATHA PO; +VISINE TEARS15 ML OPH
[2017-04-04] MEDS ORDERED: NEUR400 PO (23:56)
[2017-04-04] MEDS ORDERED: LEVOTHYROXIN75 MCG PO (23:57)
[2017-04-04] MEDS ORDERED: AMARYL1 MG PO (23:57)
[2017-04-04] MEDS ORDERED: NORCO1 TAB PO (23:57)
[2017-04-04] MEDS ORDERED: COREG12 PO (23:58)
[2017-04-04] MEDS ORDERED: RENVELA800 MG PO (23:58)
[2017-04-04] MEDS ORDERED: REPATHA INJECTION PO (23:59)
[2017-04-04] MEDS ORDERED: *UNABLE1 (23:59)
[2017-04-04] MEDS ORDERED: SPIRIVA RESPIMAT INH (23:59)
[2017-04-05 01:51] LABS: INTERNATIONAL NORMAL RATI 1.3 UNITS (-); PROTIME (NOT ORD) 16.5 SEC (12.0-14.5)
[2017-04-05 01:56] LABS: CALCIUM, SERUM 8.5 MG/DL (8.5-10.4); CHLORIDE, SERUM 102 MMOL/L (96-112); SODIUM, SERUM 131 MMOL/L (135-148)
[2017-04-05 02:08] LABS: ALBUMIN 3.1 G/DL (3.5-5.0); BUN (BLOOD UREA NITROGEN) 41 MG/DL (6-23); CO2 (CARBON DIOXIDE) 23 MMOL/L (24-34); CREATININE 7.16 MG/DL (0.70-1.30); GFR AFRICAN AMERICAN 8 ML/MIN (>=60); GFR NON AFRICAN AMERICAN 7 ML/MIN (>=60); GLUCOSE, SERUM 264 MG/DL (60-99); PHOSPHORUS, SERUM 4.5 MG/DL (2.5-4.5); POTASSIUM, SERUM 8.2 MMOL/L (3.5-5.3)
[2017-04-05 03:38] LABS: BASOPHILS 0 %; EOSINOPHILS 0 %; HEMATOCRIT 39.6 % (40.0-51.0); HEMOGLOBIN 11.6 g/dL (13.6-17.8); IMMATURE GRANULOCYTES ABSOLUTE 0.05 10/3/uL (0.0-0.11); LYMPHOCYTES 9.9 %; LYMPHOCYTES ABSOLUTE 0.49 10/3/uL (0.67-4.30); MEAN CORPUS HGB CONC 29.3 g/dL (32.0-36.0); MEAN CORPUSCULAR HEMOGLOB 30.9 pg (26.0-34.0); MEAN CORPUSCULAR VOLUME 105.3 fL (80-100); MONOCYTES 1.6 %; MONOCYTES ABSOLUTE 0.08 10/3/uL (0.21-1.20); NEUTROPHILS 87.5 %; NEUTROPHILS ABSOLUTE 4.32 10/3/uL (2.02-8.40); PLATELET COUNT 111 10/3/uL (150-400); RBC DISTRIBUTION WIDTH 18.8 % (12.0-16.0); RED CELL COUNT 3.76 10/6/uL (4.7-6.1)
[2017-04-05 03:40] LABS: MANUAL DIFF NO %; WHITE BLOOD CELLS 4.9 10/3/uL (4.5-10.5)
[2017-04-05 03:53] LABS: BUN (BLOOD UREA NITROGEN) 42 MG/DL (6-23); CALCIUM, SERUM 8.9 MG/DL (8.5-10.4); CHLORIDE, SERUM 99 MMOL/L (96-112); CREATININE 7.26 MG/DL (0.70-1.30); GFR AFRICAN AMERICAN 8 ML/MIN (>=60); GFR NON AFRICAN AMERICAN 7 ML/MIN (>=60); SODIUM, SERUM 133 MMOL/L (135-148)
[2017-04-05 03:57] LABS: CO2 (CARBON DIOXIDE) 29 MMOL/L (24-34); GLUCOSE, SERUM 412 MG/DL (60-99)
[2017-04-05 05:41] LABS: ALLENS TEST Pos; CARBOXYHEMOGLOBIN 1.3 % (0-3); DEVICE NC; HCO3 (ACTUAL BICARBONATE) 28.7 MEQ/L (23-27); INSTRUMENT SERIAL # 8083; METHEMOGLOBIN 0.1 % (0-3); O2 CONTENT 15.8 VOL% (18-24); OPERATOR ID 35785; PCO2 (CO2 TENSION) 74 MMHG (35-45); PO2 (O2 TENSION) 58 MMHG (79-93); SAMPLE Arterial; pH 7.21 (7.37-7.43)
[2017-04-05] MEDS ORDERED: ASAB PO (08:36)
[2017-04-05] MEDS ORDERED: C1 PO (08:37)
[2017-04-05] MEDS ORDERED: C2 PO (08:37)
[2017-04-05] MEDS ORDERED: VISINE TEARS15 ML OPH (08:38)
[2017-04-05] MEDS ORDERED: VITAMIN D31000 UNIT PO (08:38)
[2017-04-05] MEDS ORDERED: SYN075 PO (08:42)
[2017-04-05 10:36] LABS: BASOPHILS 0.2 %; BASOPHILS ABSOLUTE 0.01 10/3/uL (0.0-0.16); EOSINOPHILS 0.2 %; EOSINOPHILS ABSOLUTE 0.01 10/3/uL (0.0-0.53); HEMATOCRIT 41.3 % (40.0-51.0); IMMATURE GRANULOCYTES ABSOLUTE 0.05 10/3/uL (0.0-0.11); LYMPHOCYTES 9.1 %; LYMPHOCYTES ABSOLUTE 0.45 10/3/uL (0.67-4.30); MEAN CORPUS HGB CONC 29.1 g/dL (32.0-36.0); MEAN CORPUSCULAR HEMOGLOB 30.3 pg (26.0-34.0); MEAN CORPUSCULAR VOLUME 104.3 fL (80-100); NEUTROPHILS 87.5 %; NEUTROPHILS ABSOLUTE 4.34 10/3/uL (2.02-8.40); PLATELET COUNT 115 10/3/uL (150-400); RBC DISTRIBUTION WIDTH 18.8 % (12.0-16.0); RED CELL COUNT 3.96 10/6/uL (4.7-6.1)
[2017-04-05 10:37] LABS: MANUAL DIFF NO %
[2017-04-05 10:39] LABS: INTERNATIONAL NORMAL RATI 1.3 UNITS (-); PROTIME (NOT ORD) 15.7 SEC (12.0-14.5)
[2017-04-05 10:46] LABS: A/G RATIO 0.6 (0.7-1.9); ALBUMIN 2.9 G/DL (3.5-5.0); ALKALINE PHOSPHATASE 68 U/L (45-117); ANISOCYTOSIS 1+ (5-10/OIF) (0-5/OIF); BUN (BLOOD UREA NITROGEN) 24 MG/DL (6-23); CALCIUM, SERUM 8.6 MG/DL (8.5-10.4); CHLORIDE, SERUM 105 MMOL/L (96-112); CO2 (CARBON DIOXIDE) 22 MMOL/L (24-34); CREATININE 4.52 MG/DL (0.70-1.30); GFR AFRICAN AMERICAN 14 ML/MIN (>=60); GFR NON AFRICAN AMERICAN 12 ML/MIN (>=60); GLOBULIN 4.9 G/DL (2.5-4.1); GLUCOSE, SERUM 341 MG/DL (60-99); PLATELET ESTIMATE SLT DEC (ADEQUATE); SGPT(ALT) 13 U/L (5-65); SODIUM, SERUM 135 MMOL/L (135-148); TOTAL BILIRUBIN 0.3 MG/DL (0-1.2); TOTAL PROTEIN 7.8 G/DL (6.0-8.5)
[2017-04-05 10:47] LABS: GIANT PLATELET RARE; MACROCYTES 1+ (5-10/OIF) (0-5/OIF); POIKILOCYTOSIS 1+ (5-10/OIF) (0-5/OIF); POLYCHROMASIA 1+ (2-5/OIF) (0-1/OIF); SCHISTOCYTES OCC (0-2/OIF); SGOT(AST) 22 U/L (5-40)
[2017-04-05 10:49] LABS: POTASSIUM, SERUM 6.5 MMOL/L (3.5-5.3)
[2017-04-05 12:08] LABS: ALBUMIN 2.9 G/DL (3.5-5.0); BUN (BLOOD UREA NITROGEN) 27 MG/DL (6-23); CALCIUM, SERUM 8.5 MG/DL (8.5-10.4); CHLORIDE, SERUM 103 MMOL/L (96-112); CO2 (CARBON DIOXIDE) 28 MMOL/L (24-34); CREATININE 4.62 MG/DL (0.70-1.30); GFR AFRICAN AMERICAN 13 ML/MIN (>=60); GFR NON AFRICAN AMERICAN 12 ML/MIN (>=60); GLUCOSE, SERUM 357 MG/DL (60-99); PHOSPHORUS, SERUM 2.8 MG/DL (2.5-4.5); POTASSIUM, SERUM 5.9 MMOL/L (3.5-5.3); SODIUM, SERUM 139 MMOL/L (135-148)
[2017-04-05 13:31] LABS: ALBUMIN 3.1 G/DL (3.5-5.0); CALCIUM, SERUM 8.5 MG/DL (8.5-10.4); CHLORIDE, SERUM 102 MMOL/L (96-112); SODIUM, SERUM 137 MMOL/L (135-148)
[2017-04-05 13:33] LABS: BUN (BLOOD UREA NITROGEN) 17 MG/DL (6-23); CO2 (CARBON DIOXIDE) 29 MMOL/L (24-34); CREATININE 2.85 MG/DL (0.70-1.30); GFR AFRICAN AMERICAN 24 ML/MIN (>=60); GFR NON AFRICAN AMERICAN 21 ML/MIN (>=60); GLUCOSE, SERUM 248 MG/DL (60-99); PHOSPHORUS, SERUM 1.8 MG/DL (2.5-4.5); POTASSIUM, SERUM 4.8 MMOL/L (3.5-5.3)
[2017-04-05 15:29] LABS: BE (BASE EXCESS) 1.9 MEQ/L (0 +/- 2.5); CARBOXYHEMOGLOBIN 1.1 % (0-3); HCO3 (ACTUAL BICARBONATE) 30.1 MEQ/L (23-27); HEMOBLOGIN CONTENT 12.8 G/DL (14-18); INSTRUMENT SERIAL # 8083; METHEMOGLOBIN 0.1 % (0-3); O2 CONTENT 15.7 VOL% (18-24); OPERATOR ID 18801; PCO2 (CO2 TENSION) 65 MMHG (35-45); PO2 (O2 TENSION) 57 MMHG (79-93); SAMPLE Arterial; pH 7.29 (7.37-7.43)
[2017-04-06 05:57] LABS: INTERNATIONAL NORMAL RATI 1.9 UNITS (-); PROTIME (NOT ORD) 21.3 SEC (12.0-14.5)
[2017-04-06 06:06] LABS: BASOPHILS 0.1 %; BASOPHILS ABSOLUTE 0.01 10/3/uL (0.0-0.16); EOSINOPHILS 0 %; HEMATOCRIT 38.2 % (40.0-51.0); HEMOGLOBIN 11.1 g/dL (13.6-17.8); IMMATURE GRANULOCYTES 0.3 %; IMMATURE GRANULOCYTES ABSOLUTE 0.03 10/3/uL (0.0-0.11); LYMPHOCYTES 6.6 %; LYMPHOCYTES ABSOLUTE 0.57 10/3/uL (0.67-4.30); MANUAL DIFF NO %; MEAN CORPUS HGB CONC 29.1 g/dL (32.0-36.0); MEAN CORPUSCULAR HEMOGLOB 29.8 pg (26.0-34.0); MEAN CORPUSCULAR VOLUME 102.7 fL (80-100); MEAN PLATELET VOLUME 10.5 fL (9.2-13.0); MONOCYTES 7.8 %; MONOCYTES ABSOLUTE 0.67 10/3/uL (0.21-1.20); NEUTROPHILS 85.2 %; NEUTROPHILS ABSOLUTE 7.33 10/3/uL (2.02-8.40); NUCLEATED RED BLOOD CELLS 1.6 /100WBC (0-0); PLATELET COUNT 124 10/3/uL (150-400); RBC DISTRIBUTION WIDTH 18.8 % (12.0-16.0); RED CELL COUNT 3.72 10/6/uL (4.7-6.1); WHITE BLOOD CELLS 8.6 10/3/uL (4.5-10.5)
[2017-04-06 06:08] LABS: ALBUMIN 2.8 G/DL (3.5-5.0); CALCIUM, SERUM 8.3 MG/DL (8.5-10.4); CHLORIDE, SERUM 105 MMOL/L (96-112); CO2 (CARBON DIOXIDE) 26 MMOL/L (24-34); GLUCOSE, SERUM 295 MG/DL (60-99); POTASSIUM, SERUM 5.1 MMOL/L (3.5-5.3); SODIUM, SERUM 140 MMOL/L (135-148)
[2017-04-06 06:09] LABS: BUN (BLOOD UREA NITROGEN) 30 MG/DL (6-23); CREATININE 4.63 MG/DL (0.70-1.30); GFR AFRICAN AMERICAN 13 ML/MIN (>=60); GFR NON AFRICAN AMERICAN 12 ML/MIN (>=60); PHOSPHORUS, SERUM 2.8 MG/DL (2.5-4.5)
[2017-04-07 07:44] LABS: BASOPHILS 0.1 %; BASOPHILS ABSOLUTE 0.01 10/3/uL (0.0-0.16); EOSINOPHILS 0 %; HEMATOCRIT 36.9 % (40.0-51.0); IMMATURE GRANULOCYTES 0.3 %; IMMATURE GRANULOCYTES ABSOLUTE 0.03 10/3/uL (0.0-0.11); LYMPHOCYTES 5.6 %; LYMPHOCYTES ABSOLUTE 0.64 10/3/uL (0.67-4.30); MEAN CORPUS HGB CONC 29.8 g/dL (32.0-36.0); MEAN CORPUSCULAR HEMOGLOB 29.9 pg (26.0-34.0); MEAN CORPUSCULAR VOLUME 100.3 fL (80-100); MEAN PLATELET VOLUME 9.8 fL (9.2-13.0); MONOCYTES 8.5 %; MONOCYTES ABSOLUTE 0.97 10/3/uL (0.21-1.20); NEUTROPHILS 85.5 %; NEUTROPHILS ABSOLUTE 9.75 10/3/uL (2.02-8.40); NUCLEATED RED BLOOD CELLS 0.8 /100WBC (0-0); PLATELET COUNT 129 10/3/uL (150-400); RBC DISTRIBUTION WIDTH 18.7 % (12.0-16.0); RED CELL COUNT 3.68 10/6/uL (4.7-6.1); WHITE BLOOD CELLS 11.4 10/3/uL (4.5-10.5)
[2017-04-07 07:45] LABS: MANUAL DIFF NO %
[2017-04-07 07:51] LABS: ALBUMIN 2.9 G/DL (3.5-5.0); CALCIUM, SERUM 8.3 MG/DL (8.5-10.4); CHLORIDE, SERUM 102 MMOL/L (96-112); CO2 (CARBON DIOXIDE) 26 MMOL/L (24-34); PHOSPHORUS, SERUM 3.3 MG/DL (2.5-4.5); POTASSIUM, SERUM 5.1 MMOL/L (3.5-5.3); SODIUM, SERUM 138 MMOL/L (135-148)
[2017-04-07 07:52] LABS: BUN (BLOOD UREA NITROGEN) 66 MG/DL (6-23); CREATININE 6.33 MG/DL (0.70-1.30); GFR AFRICAN AMERICAN 9 ML/MIN (>=60); GFR NON AFRICAN AMERICAN 8 ML/MIN (>=60); GLUCOSE, SERUM 183 MG/DL (60-99)
[2017-04-07 07:53] LABS: INTERNATIONAL NORMAL RATI 2.7 UNITS (-)
[2017-04-07 07:54] LABS: PROTIME (NOT ORD) 28.1 SEC (12.0-14.5)
[2017-04-07] MEDS ORDERED: P10 (11:48)
[2017-05-08] MEDS ORDERED: COREG12 PO (16:04)
[2017-05-08] MEDS ORDERED: HALF81 PO (16:04)
[2017-05-08] MEDS ORDERED: NEUR400 PO ×2 (16:05→16:09)
[2017-05-08] MEDS ORDERED: AMARYL1 MG PO (16:05)
[2017-05-08] MEDS ORDERED: VITAMIN D31000 UNIT PO (16:05)
[2017-05-08] MEDS ORDERED: VISINE TEARS15 ML OPH (16:06)
[2017-05-08] MEDS ORDERED: NORCO1 TAB PO (16:08)
[2017-05-08] MEDS ORDERED: SYN075 PO (16:12)
[2017-05-08] MEDS ORDERED: RENVELA800 MG PO (16:13)
[2017-05-08] MEDS ORDERED: SPIRIVA RESPIMAT INH (16:15)
[2017-05-08] MEDS ORDERED: REPATHA INJECTION SC (16:18)
[2017-05-08] MEDS ORDERED: C2 PO (16:20)
== END 2017-04-07 17:00 | disposition home or self-care (01) | DRG 166 ==
LOC: ER 19:26 → IMCU 23:30 → 5SO 04-06 14:57
PROVIDERS: Emergency Medicine; Internal Medicine Nephrology; Surgery
PROC: 03763DZ Dilation of Left Axillary Artery with Intraluminal Device, Percutaneous Approach (ICD-10-PCS; 2017-04-06)
PROC: B51M1ZZ Fluoroscopy of Right Upper Extremity Veins using Low Osmolar Contrast (ICD-10-PCS; principal; 2017-04-06 13:00)
PROC: 037Y3DZ Dilation of Upper Artery with Intraluminal Device, Percutaneous Approach (ICD-10-PCS; 2017-04-06 13:00)
DX: J96.21 Acute and chronic respiratory failure with hypoxia (principal); N18.6 End stage renal disease; I12.0 Hypertensive chronic kidney disease with stage 5 chronic kidney disease or end stage renal disease; E11.22 Type 2 diabetes mellitus with diabetic chronic kidney disease; J44.1 Chronic obstructive pulmonary disease with (acute) exacerbation; E87.5 Hyperkalemia; J96.22 Acute and chronic respiratory failure with hypercapnia; I25.10 Atherosclerotic heart disease of native coronary artery without angina pectoris; E03.9 Hypothyroidism, unspecified; W01.0XXA Fall on same level from slipping, tripping and stumbling without subsequent striking against object, initial encounter; I25.5 Ischemic cardiomyopathy; E78.5 Hyperlipidemia, unspecified; Z95.0 Presence of cardiac pacemaker; Z99.2 Dependence on renal dialysis; Z91.81 History of falling; Z87.440 Personal history of urinary (tract) infections; Y92.019 Unspecified place in single-family (private) house as the place of occurrence of the external cause; Z87.891 Personal history of nicotine dependence; Z87.01 Personal history of pneumonia (recurrent); Z79.899 Other long term (current) drug therapy
CPT/HCPCS: 36600; 36902; 70450; 71010; 80048; 80053; 80069; 82805; 82962; 83735; 85025; 85610; 87641; 93005; 94640; 96374; 96375; 99291; A9270-GY; C1725; C1769; C1894; G0257; J0610; J2250; J2930; J3010; Q9967